=== PATIENT | female | born 1945 | race Caucasian/White ===

== ENCOUNTER 2023-01-24 08:35 | Emergency (ER) | payer MEDICARE, BC ==
[2023-01-24 08:58] LABS: BASOPHILS ABSOLUTE AUTO 0.04 10^3/uL (0.00-0.10); BASOPHILS PERCENT AUTO 0.4 % (0.0-1.0); EOSINOPHILS ABSOLUTE AUTO 0.05 10^3/uL (0.10-0.30); EOSINOPHILS PERCENT AUTO 0.5 % (1.0-3.0); HEMATOCRIT 45.2 % (37.0-47.0); HEMOGLOBIN 14.7 g/dL (12.0-16.0); IMMATURE GRAN ABSOLUTE AUTO 0.02 10^3/uL (0.00-0.50); IMMATURE GRAN PERCENT AUTO 0.2 % (0.0-5.0); LYMPHOCYTES ABSOLUTE AUTO 1.28 10^3/uL (1.00-4.00); LYMPHOCYTES PERCENT AUTO 11.9 % (20.0-40.0); MEAN CORPUSCULAR HEMOGLOBIN 29.3 pg (27.0-31.0); MEAN CORPUSCULAR HGB CONC 32.5 g/dL (32.0-36.0); MEAN PLATELET VOLUME 10.4 fL (7.4-10.4); MONOCYTES ABSOLUTE AUTO 1.31 10^3/uL (0.10-0.80); MONOCYTES PERCENT AUTO 12.2 % (2.0-8.0); NEUTROPHILS ABSOLUTE AUTO 8.03 10^3/uL (2.50-7.00); NEUTROPHILS PERCENT AUTO 74.8 % (50.0-70.0); PLATELET COUNT,PLT 178 10^3/uL (150-400); RED BLOOD CELL COUNT 5.02 10^6/uL (3.80-5.50); RED CELL DISTRIBUTION WIDTH 12.2 % (11.5-14.5); WHITE BLOOD CELL COUNT,WBC 10.73 10^3/uL (5.00-10.00)
[2023-01-24 09:39] LABS: ALBUMIN 3.55 g/dL (3.40-5.00); ANION GAP 12.4 mmol/L (5-15); BILIRUBIN TOTAL 0.8 mg/dL (0.2-1.0); CALCIUM 8.8 mg/dL (8.7-10.3); CARBON DIOXIDE,CO2 28.8 mmol/L (21.0-32.0); CREATININE 0.93 mg/dL (0.51-1.17); EST CRCL DRUG DOSING (CG) 51.26 mL/min; POTASSIUM,K 4.2 mmol/L (3.5-5.1); PROTEIN TOTAL,TP 6.6 g/dL (6.4-8.2)
== END 2023-01-24 10:08 | disposition home or self-care (01) ==
LOC: KA.ED 08:35
DX: R07.89 Other chest pain (principal); Z88.0 Allergy status to penicillin
CPT/HCPCS: 36415; 71101-LT; 80053; 84484; 85025; 93010; 99284; 99285

== ENCOUNTER 2023-08-26 09:04 | Day surgery (SDC) | payer MEDICARE, BC ==
[2023-08-26] MEDS: Sodium Chloride 0.9% 1,000 ML IV SCH (09:21)
[2023-08-26] MEDS ORDERED: Sodium Chloride 0.9% 10 ML Syringe FLUSH PRN (09:30)
[2023-08-26] MEDS ORDERED: Propofol 200 MG/20 ML SDV ONE (10:20)
[2023-08-26] MEDS ORDERED: Midazolam 1 MG/ML 2 ML SDV ONE (10:20)
[2023-08-26 11:54] VITALS: BP 130/62; PULSE 66
== END 2023-08-26 11:55 | disposition home or self-care (01) ==
LOC: KA.SDS 09:04
PROVIDERS: ATTEND Surgery
DX: Z12.11 Encounter for screening for malignant neoplasm of colon (principal); K64.4 Residual hemorrhoidal skin tags; E03.9 Hypothyroidism, unspecified; Z98.51 Tubal ligation status; Z79.890 Hormone replacement therapy; Z79.899 Other long term (current) drug therapy; Z88.0 Allergy status to penicillin
CPT/HCPCS: J2250; J2704; J3490; J7030

== ENCOUNTER 2024-11-01 19:57 | Emergency (ER) | payer MEDICARE, BC ==
[2024-11-01] MEDS: Tetracaine HCl/PF 0.5% 4 ML Bottle EYERT ONE (20:20)
[2024-11-01] MEDS: Dexamethasone/Tobramycin 0.1-0.3% Ophth Susp 2.5 ML Bottle EYERT SCH (20:55)
[2024-11-02 02:23] VITALS: BP 124/61; PULSE 70
== END 2024-11-01 21:06 | disposition home or self-care (01) ==
LOC: KA.ED 19:57
DX: T15.91XA Foreign body on external eye, part unspecified, right eye, initial encounter (principal); Z88.0 Allergy status to penicillin; Z79.890 Hormone replacement therapy; Z79.899 Other long term (current) drug therapy; Z79.51 Long term (current) use of inhaled steroids; W44.8XXA Other foreign body entering into or through a natural orifice, initial encounter; Y93.89 Activity, other specified
CPT/HCPCS: 65205; 99283; 99283-25; A9270-GY

== ENCOUNTER 2024-11-09 19:35 | Emergency (ER) | payer MEDICARE, BC ==
[2024-11-09 19:58] VITALS: BP 150/67
[2024-11-09 20:01] VITALS: PULSE 55
[2024-11-09] MEDS: Fluorescein 1 MG Ophth Strip EYERT ONE (20:32)
[2024-11-09] MEDS: Dexamethasone/Tobramycin 0.1-0.3% Ophth Susp 2.5 ML Bottle EYERT SCH (20:32)
[2024-11-09] MEDS: Tetracaine HCl/PF 0.5% 4 ML Bottle EYERT ONE (20:32)
== END 2024-11-09 20:40 | disposition home or self-care (01) ==
LOC: KA.ED 19:35
DX: T15.91XA Foreign body on external eye, part unspecified, right eye, initial encounter (principal); Z88.0 Allergy status to penicillin; Z79.51 Long term (current) use of inhaled steroids; Z79.890 Hormone replacement therapy; Z79.899 Other long term (current) drug therapy; W45.8XXA Other foreign body or object entering through skin, initial encounter
CPT/HCPCS: 99283; A9270-GY